=== PATIENT | female | born 1965 | race Caucasian/White ===

== ENCOUNTER 2017-01-28 16:07 | Emergency (ER) | payer SELFPAY ==
[~2017-01-28] VITALS: Ht 172.7 cm; Wt 66.6 kg
[~2017-01-28 16:07] MED LIST: ALBU8.5H5 INH; ALPR-475 PO; DOCU-30 PO; FERR325T10 PO; FLUO20TA25 PO; OMEP-110 PO
[2017-01-28 16:08] VITALS: BP 122/73
[2017-01-28] MEDS ORDERED: KETOROLAC 30 MG/1 ML ONE (16:43)
[2017-01-28] MEDS ORDERED: METHOCARBAMOL 750 MG TABLET ONE (16:59)
[2017-01-28] MEDS ORDERED: KETOROLAC 30 MG/1 ML IM ONE (17:00)
[2017-01-28] MEDS ORDERED: METHOCARBAMOL 750 MG TABLET PO ONE (17:00)
== END 2017-01-28 17:47 | disposition home or self-care (01) ==
LOC: ED 17:41
DX: M62.830 Muscle spasm of back (principal); M54.5 Low back pain
CPT/HCPCS: 72110; 96372; 99284; J1885

== ENCOUNTER 2019-01-10 00:45 | Emergency (ER) | payer SELFPAY ==
[~2019-01-10] VITALS: Ht 172.7 cm; Wt 79.7 kg
[~2019-01-10 00:45] MED LIST changes: +DOCU-131 PO; -DOCU-30 PO; -FERR325T10 PO; +FERR325T17 PO
[2019-01-10 00:53] VITALS: BP 149/76
--- NOTE | 2019-01-10 01:17 | NUR ---
PT BROUGHT BACK TO ROOM FROM LOBBY
--- NOTE | 2019-01-10 01:39 | NUR ---
PT HAS THRUSH ON TONGUE FOR PAST 2 DAYS. NOW HAVING PAIN IN EARS.
== END 2019-01-10 02:28 | disposition home or self-care (01) ==
LOC: ED 02:00
DX: H65.92 Unspecified nonsuppurative otitis media, left ear (principal); K12.0 Recurrent oral aphthae
CPT/HCPCS: 71045; 99283